=== PATIENT | female | born 1985 | race Caucasian/White ===

== ENCOUNTER 2016-10-21 19:03 | Emergency (ER) | payer OTHER | END 2016-10-21 22:30 | disposition left against medical advice (07) | LOC: ER 19:03 | DX: Z53.21 Procedure and treatment not carried out due to patient leaving prior to being seen by health care provider (principal) ==

== ENCOUNTER 2016-11-08 20:43 | Emergency (ER) | payer OTHER ==
[2016-11-08 21:02] LABS: URINE BILIRUBIN NEGATIVE (NEGATIVE); URINE BLOOD 3+ (NEGATIVE); URINE GLUCOSE (UA) NORMAL (NORMAL); URINE KETONE NEGATIVE (NEGATIVE); URINE LEUKOCYTE ESTERASE TRACE (NEGATIVE); URINE NITRATE NEGATIVE (NEGATIVE); URINE PROTEIN TRACE (NEGATIVE)
[2016-11-08 21:14] LABS: URINE RBC TNTC /[HPF] (0-2); URINE SQUAMOUS EPITHELIAL CELL 0-10 /[HPF] (NONE SEEN); URINE WBC 0-5 /[HPF] (0-5)
== END 2016-11-08 23:13 | disposition home or self-care (01) ==
LOC: ER 20:43
PROVIDERS: General Practice
DX: R10.32 Left lower quadrant pain (principal); R31.9 Hematuria, unspecified; E66.01 Morbid (severe) obesity due to excess calories; Z77.22 Contact with and (suspected) exposure to environmental tobacco smoke (acute) (chronic); Z88.0 Allergy status to penicillin; Z88.1 Allergy status to other antibiotic agents
CPT/HCPCS: 74150; 81001; 99284-25

== ENCOUNTER 2017-01-02 18:58 | Emergency (ER) | payer OTHER ==
[2017-01-02 20:51] LABS: BASO % 0.4 % (0.1-1.2); EOS # 0.5 10_X3_uL (0.0-0.4); EOS % 5.8 % (0.7-5.8); GRAN # 4.3 10_X3_uL (1.6-6.1); GRAN % 54.6 % (34.0-71.1); HEMATOCRIT 38.3 % (34-45); HEMOGLOBIN 12.8 g/dL (11.2-15.7); LYMPH # 2.6 10_X3_uL (1.2-3.7); LYMPH % 33.1 % (19.3-51.7); MEAN CORPUSCULAR HEMOGLOBIN 30.3 pg (27.0-33.0); MEAN CORPUSCULAR HGB CONC 33.4 g/dL (32.0-36.0); MEAN CORPUSCULAR VOLUME 90.8 fL (79-95); MEAN PLATELET VOLUME 10.9 fl (7.5-11.5); MONO # 0.5 10_X3_uL (0.2-0.9); MONO % 6.1 % (4.7-12.5); PLATELET COUNT 297 x10_3/uL (182-369); RED BLOOD COUNT 4.22 x10_6/uL (3.9-5.2); RED CELL DISTRIBUTION WIDTH 13.7 % (11.7-14.4); WHITE BLOOD COUNT 7.9 x10_3/uL (4.0-10.0)
[2017-01-02 21:04] LABS: ALBUMIN 4.1 gm/dL (3.4-5.0); ALKALINE PHOSPHATASE 74 U/L (50-136); ALT/SGPT 16 U/L (3.5-33.9); AST/SGOT 12 U/L (7.04-26.96); BILIRUBIN,TOTAL 0.18 mg/dL (0.0-1.0); BLOOD UREA NITROGEN 11 mg/dL (7-18); CALCIUM 9.5 mg/dL (8.7-10.7); CARBON DIOXIDE 24 mmol/L (21-32); CREATININE 0.7 mg/dL (0.6-1.3); GLUCOSE,RANDOM 111 mg/dL (70-99); POTASSIUM 3.6 mmol/L (3.5-5.1); SODIUM 139 mmol/L (136-145); TOTAL PROTEIN 7.4 gm/dL (6.4-8.2)
[2017-01-02 21:17] LABS: PARTIAL THROMBOPLASTIN TIME 23.8 SECONDS (21.8-28.4); PROTHROMBIN TIME (PATIENT) 10.2 SECONDS (9.6-10.8)
== END 2017-01-02 22:22 | disposition home or self-care (01) ==
LOC: ER 18:58
PROVIDERS: Emergency Medicine
DX: R10.9 Unspecified abdominal pain (principal); G89.18 Other acute postprocedural pain; R11.0 Nausea; W19.XXXA Unspecified fall, initial encounter; Y92.009 Unspecified place in unspecified non-institutional (private) residence as the place of occurrence of the external cause; Z90.710 Acquired absence of both cervix and uterus; Z88.1 Allergy status to other antibiotic agents
CPT/HCPCS: 36415; 74150; 80053; 85025; 85610; 85730; 99284-25